=== PATIENT | male | born 1955 | race Caucasian/White ===

== ENCOUNTER 2021-03-07 13:25 | Emergency (ER) | payer OTHER ==
[2021-03-07 14:26] LABS: Absolute Lymphocytes (CBC) 1.9 K/uL (0.7-4.9); Basophils % 1.1 % (0-1.3); Hematocrit 44.4 % (39.6-49.0); Lymphocytes % 20.2 % (15.3-44.8); MPV 7.1 fL (7.6-11.3); RBC Red Blood Cell Count 5.11 M/uL (4.33-5.43)
[2021-03-07] MEDS ORDERED: ONDANSETRON 4 MG/2 ML VIAL ONE ×2 (14:28→18:24)
[2021-03-07] MEDS ORDERED: PANTOPRAZOLE 40 MG INJ ONE (14:28)
[2021-03-07] MEDS ORDERED: NA CHLORIDE 0.9% 1,000 ML ONE (14:28)
[2021-03-07 14:35] LABS: Protime INR 1.08
[2021-03-07 14:45] LABS: ALT/SGPT 66 U/L (12-78); AST/SGOT 35 U/L (15-37); Albumin 4.5 g/dL (3.4-5.0); Alkaline Phosphatase 55 U/L (45-117); BUN Blood Urea Nitrogen 28 mg/dL (7-18); Bicarbonate 26 mmol/L (21-32); Bilirubin Direct 0.2 mg/dL (0-0.2); Bilirubin Total 0.7 mg/dL (0.2-1.0); Glucose Level 107 mg/dL (74-106); Lipase 129 U/L (73-393); Magnesium 2.3 mg/dL (1.8-2.4); Potassium 3.9 mmol/L (3.5-5.1); Protein, Total 7.7 g/dL (6.4-8.2); Sodium Level 140 mmol/L (136-145); Troponin (Emerg Dept Use Only) < 0.02 ng/mL (0.0-0.045)
--- NOTE | 2021-03-07 15:23 | RAD REPORT ---
EXAM DESCRIPTION: CT - Abdomen Pelvis W Contrast - 03/07/2021 3:15 pm CLINICAL HISTORY: ABD PAIN COMPARISON: No comparisons TECHNIQUE: Biphasic, helical CT imaging of the abdomen and pelvis was performed following 100 ml non -ionic IV contrast. No oral contrast was given. All CT scans are performed using dose optimization technique as appropriate and may include automated exposure control or mA/KV adjustment according to patient size. FINDINGS: No suspicious findings in the lung bases. The liver, spleen, and pancreas show no suspicious findings. Diffuse fatty infiltration of the liver is present. No portal vein abnormality. Gallbladder and biliary tree are also without suspicious find ing. Symmetric renal function is seen with no hydronephrosis or suspicious renal mass. No pyelonephritis o r acute parenchymal process. No bladder abnormalities. No adrenal abnormalities. Prostate gland is prominent and mildly lobulated. Small renal cysts are present. Distended but nondilated fluid-filled stomach is present. No acute finding in the GE junction. No gas tric wall thickening or mass. Gastric outlet obstruction is not suspected. No acute large or small beverly wel finding. Appendix is normal. Moderate stool volume is present throughout the colon. No free air, free fluid or inflammatory stranding. No hernia, mass or bulky lymphadenopathy. No suspicious bony findings. IMPRESSION: Contrast enhanced CT abdomen and pelvis showing no acute or emergent finding. Distended, fluid-filled stomach seen without abnormality the GE junction. No gastric wall abnormality seen. No outlet obstruction. Fatty infiltration of the liver.
--- NOTE | 2021-03-07 15:24 | RAD REPORT ---
EXAM DESCRIPTION: RAD - Chest Single View - 03/07/2021 3:05 pm CLINICAL HISTORY: vomiting, abdominal pain COMPARISON: June 2008 TECHNIQUE: AP portable chest image was obtained 03/07/2021 3:05 pm . FINDINGS: Lungs are clear. Interstitial pattern is prominent but similar to comparison. Heart and va sculature are normal. No measurable pleural effusion and no pneumothorax. No acute bony abnormality s een. No acute aortic findings suspected. IMPRESSION: No acute cardiopulmonary process. No significant change from comparison study.
--- NOTE | 2021-03-07 17:58 | RAD REPORT ---
EXAM DESCRIPTION: US - Abdomen Exam Limited - 03/07/2021 4:19 pm CLINICAL HISTORY: Abdominal pain. COMPARISON: None. FINDINGS: The gallbladder wall is not thickened. A gallstone is not seen. The biliary tree is normal caliber. IMPRESSION: Unremarkable gallbladder ultrasound.
--- NOTE | 2021-03-07 18:06 | ER ---
Nurse's Notes [facility] Name: Lio Freire Age: 65 yrs Sex: Male : 1955 Arrival Date: 03/07/2021 Time: 13:29 Bed 8 Private MD: Diagnosis: Nausea and vomiting;Epigastric pain;Abnormal electrocardiogram [ECG] [EKG]-Mobitz type II Presentation: 03/07 13:50 Chief complaint: Chief complaint: Patient states: Reports 12 episodes of coffee ground ph emesis since last night, denies pain in abdomen or blood in stool. Reports hx of elevated liver enzymes and an enlarged spleen. States, " I took a bunch of Tumms last night because I had really bad reflux and then I started getting sick after that.". 13:52 Coronavirus screen: Client denies travel out of the [place] in the last 14 days. At this ph time, the client does not indicate any symptoms associated with coronavirus-19. Ebola Screen: No symptoms or risks identified at this time. Initial Sepsis Screen: Does the patient meet any 2 criteria? No. Patient's initial sepsis screen is negative. Does the patient have a suspected source of infection? No. Patient's initial sepsis screen is negative. Risk Assessment: Do you want to hurt yourself or someone else? Patient reports no desire to harm self or others. Onset of symptoms was March 07, 2021. 13:52 Method Of Arrival: Ambulatory ph 13:52 Acuity: FRITZ 3 ph Historical: - Allergies: 13:55 Sulfa (Sulfonamide Antibiotics); ph - PMHx: 13:55 Pneumonia; enlarged spleen; GERD; COPD; ph - Immunization history:: Adult Immunizations unknown. - Social history:: Smoking status: Patient denies any tobacco usage or history of. Screenin:00 Abuse screen: Denies threats or abuse. Denies injuries from another. Nutritional ca1 screening: No deficits noted. Tuberculosis screening: No symptoms or risk factors identified. Fall Risk IV access (20 points). Assessment: 14:00 General: Appears in no apparent distress. comfortable, Behavior is calm, cooperative, ca1 appropriate for age. Pain: Denies pain. Neuro: Level of Consciousness is awake, alert, obeys commands, Oriented to person, place, time, situation. Cardiovascular: Heart tones S1 S2 present Capillary refill < 3 seconds Patient's skin is warm and dry. Cardiovascular: Rhythm is sinus rhythm. Respiratory: Airway is patent Respiratory effort is even, unlabored, Respiratory pattern is regular, symmetrical, Breath sounds are clear bilaterally. GI: Abdomen is round non-distended, Bowel sounds present X 4 quads. Abd is soft X 4 quads Abdomen is tender to palpation in left upper quadrant Reports nausea, vomiting, since this morning. : No signs and/or symptoms were reported regarding the genitourinary system. EENT: No signs and/or symptoms were reported regarding the EENT system. Derm: Skin is intact, is healthy with good turgor, Skin is pink, warm \\T\\ dry. Musculoskeletal: Circulation, motion, and sensation intact. Capillary refill < 3 seconds. 15:35 Reassessment: Patient appears in no apparent distress at this time. Patient and/or ca1 family updated on plan of care and expected duration. Pain level reassessed. Patient is alert, oriented x 3, equal unlabored respirations, skin warm/dry/pink. 16:00 Reassessment: Provider VO to hold PO challenge, pending US. ca1 16:16 Reassessment: Patient appears in no apparent distress at this time. Patient and/or ca1 family updated on plan of care and expected duration. Pain level reassessed. Patient is alert, oriented x 3, equal unlabored respirations, skin warm/dry/pink. US at bedside. 17:11 Reassessment: Patient appears in no apparent distress at this time. Patient and/or ca1 family updated on plan of care and expected duration. Pain level reassessed. Patient is alert, oriented x 3, equal unlabored respirations, skin warm/dry/pink. 18:15 Reassessment: Patient appears in no apparent distress at this time. Patient and/or ca1 family updated on plan of care and expected duration. Pain level reassessed. Patient is alert, oriented x 3, equal unlabored respirations, skin warm/dry/pink. Vital Signs: 13:52 BP 162 / 107; Pulse 90; Resp 18; Temp 97.2; Pulse Ox 97% on R/A; Weight 117.93 kg; ph Height 6 ft. 2 in. (187.96 cm); 15:35 BP 157 / 85; Pulse 75; Resp 16 S; Pulse Ox 95% on R/A; ca1 16:16 BP 157 / 86; Pulse 71; Resp 20; Pulse Ox 97% on R/A; ca1 17:11 BP 158 / 91; Pulse 67; Resp 20 S; Pulse Ox 96% on R/A; ca1 18:15 BP 151 / 86; Pulse 72; Resp 16 S; Pulse Ox 95% on R/A; ca1 13:52 Body Mass Index 33.38 (117.93 kg, 187.96 cm) ph ED Course: 13:29 Patient arrived in ED. ds1 13:42 Emre Franco PA is PHCP. cp 13:42 Jac Alcocer MD is Attending Physician. cp 13:54 Triage completed. ph 13:55 Arm band placed on Patient placed in an exam room, on a stretcher. ph 14:00 Patient has correct armband on for positive identification. Bed in low position. Call ca1 light in reach. Side rails up X2. athletic monitor on. Pulse ox on. NIBP on. Warm blanket given. 14:02 Nicolette Nielsen, RN is Primary Nurse. ca1 14:18 Initial lab(s) drawn, by ia, sent to lab. Inserted saline lock: 22 gauge in right ca1 antecubital area, using aseptic technique. Blood collected. 15:05 XRAY Chest (1 view) In Process Unspecified. EDMS 15:15 CT Abd/Pelvis - IV Contrast Only In Process Unspecified. EDMS 16:18 US Abdomen Limited In Process Unspecified. EDMS 18:02 Tray Parikh MD is Referral Physician. cp 18:32 No provider procedures requiring assistance completed. IV discontinued, intact, ca1 bleeding controlled, No redness/swelling at site. Pressure dressing applied. Administered Medications: 14:19 Drug: ProTONIX (pantoprazole) 40 mg Route: IVP; Site: right antecubital; ca1 15:30 Follow up: Response: No adverse reaction ca1 14:21 Drug: NS 0.9% 500 ml Route: IV; Rate: bolus; Site: right antecubital; ca1 15:30 Follow up: Response: No adverse reaction; IV Status: Completed infusion; IV Intake: ca1 500ml 14:22 Drug: Zofran (Ondansetron) 4 mg Route: IVP; Site: right antecubital; ca1 15:30 Follow up: Response: No adverse reaction; Nausea is decreased ca1 15:00 Drug: NS 0.9% 500 ml Route: IV; Rate: 125 ml/hr; Site: right antecubital; ca1 18:07 Follow up: Response: No adverse reaction; IV Status: Completed infusion; IV Intake: ca1 500ml 18:00 Drug: Zofran (Ondansetron) 4 mg Route: IVP; Site: right antecubital; ca1 18:31 Follow up: Response: No adverse reaction; Nausea is decreased ca1 Intake: 15:30 IV: 500ml; Total: 500ml. ca1 18:07 IV: 500ml; Total: 1000ml. ca1 Outcome: 18:06 Discharge ordered by MD. cp 18:32 Discharged to home ambulatory. ca1 18:32 Condition: stable 18:32 Discharge instructions given to patient, Instructed on discharge instructions, follow up and referral plans. medication usage, Demonstrated understanding of instructions, follow-up care, medications, Prescriptions given X 2. 18:32 Patient left the ED. ca1 Signatures: Dispatcher [employer] [facility] Albert, Carolyn ds1 Charleen Foy RN RN ph Emre Franco PA PA cp Acob, Cheryl RN RN ca1 Corrections: (The following items were deleted from the chart) 13:54 13:50 Chief complaint: ph ph
--- NOTE | 2021-03-07 18:06 | EDPHYS ---
Physician Documentation [facility] Name: Lio Freire Age: 65 yrs Sex: Male : 1955 Arrival Date: 03/07/2021 Time: 13:29 Bed 8 Private MD: ED Physician Jac Alcocer HPI: 03/07 14:00 This 65 yrs old Male presents to ER via Ambulatory with complaints of cp Vomiting. 14:00 The patient presents to the emergency department with nausea, with "dry heaves", cp vomiting, that is continuous, described as dark brown, abdominal pain, of the epigastric area. Onset: The symptoms/episode began/occurred last night. Possible causes: history of acid reflux. Associated signs and symptoms: Pertinent positives: anorexia, belching, Pertinent negatives: constipation, diarrhea, fever. 14:00 Severity of symptoms: in the emergency department the symptoms are unchanged despite cp home interventions. Historical: - Allergies: 13:55 Sulfa (Sulfonamide Antibiotics); ph - PMHx: 13:55 Pneumonia; enlarged spleen; GERD; COPD; ph - Immunization history:: Adult Immunizations unknown. - Social history:: Smoking status: Patient denies any tobacco usage or history of. ROS: 14:05 Constitutional: Positive for poor PO intake, Negative for body aches, chills, fever. cp 14:05 Eyes: Negative for injury, pain, redness, and discharge. cp 14:05 Cardiovascular: Negative for chest pain, edema, palpitations. 14:05 Respiratory: Negative for cough, shortness of breath, wheezing. 14:05 Abdomen/GI: Positive for nausea and vomiting, dark colored emesis, Negative for diarrhea, constipation, black/tarry stool, rectal bleeding. 14:05 Back: Negative for pain at rest, pain with movement, radiated pain. 14:05 : Negative for urinary symptoms. 14:05 Neuro: Negative for altered mental status, dizziness, headache, syncope, weakness. 14:05 All other systems are negative. Exam: 14:10 Constitutional: The patient appears in no acute distress, alert, awake, cp non-diaphoretic, non-toxic, well developed, well nourished, uncomfortable. 14:10 Head/Face: Normocephalic, atraumatic. cp 14:10 Eyes: Periorbital structures: appear normal, Conjunctiva: normal, no exudate, no injection, Sclera: no appreciated abnormality, Lids and lashes: appear normal, bilaterally. 14:10 ENT: External ear(s): are unremarkable, Nose: is normal, Mouth: Lips: moist, Oral mucosa: moist, Posterior pharynx: Airway: no evidence of obstruction, patent. 14:10 Chest/axilla: Inspection: normal, Palpation: is normal, no crepitus, no tenderness. 14:10 Cardiovascular: Rate: normal, Rhythm: regular, Edema: is not appreciated, JVD: is not appreciated. 14:10 Respiratory: the patient does not display signs of respiratory distress, Respirations: normal, no use of accessory muscles, no retractions, labored breathing, is not present, Breath sounds: are clear throughout, no decreased breath sounds, no stridor, no wheezing. 14:10 Abdomen/GI: Inspection: abdomen appears normal, Bowel sounds: active, all quadrants, Palpation: soft, in all quadrants, mild abdominal tenderness, in the epigastric area and right upper quadrant, rebound tenderness, is not appreciated, voluntary guarding, is elicited in the epigastric area and right upper quadrant. 14:10 Back: CVA tenderness, is absent. 14:10 Neuro: Orientation: to person, place \\T\\ time. Mentation: is normal. 14:37 ECG was reviewed by the Attending Physician. cp Vital Signs: 13:52 BP 162 / 107; Pulse 90; Resp 18; Temp 97.2; Pulse Ox 97% on R/A; Weight 117.93 kg; ph Height 6 ft. 2 in. (187.96 cm); 15:35 BP 157 / 85; Pulse 75; Resp 16 S; Pulse Ox 95% on R/A; ca1 16:16 BP 157 / 86; Pulse 71; Resp 20; Pulse Ox 97% on R/A; ca1 17:11 BP 158 / 91; Pulse 67; Resp 20 S; Pulse Ox 96% on R/A; ca1 18:15 BP 151 / 86; Pulse 72; Resp 16 S; Pulse Ox 95% on R/A; ca1 13:52 Body Mass Index 33.38 (117.93 kg, 187.96 cm) ph MDM: 13:55 Patient medically screened. cp 14:00 Differential diagnosis: gastritis, cholecystitis, pancreatitis, viral gastroenteritis, cp gastroenteritis, PUD, acute WI. 17:10 Physician consultation: Tray Parikh MD was contacted at 17:00, regarding EKG, agrees cp that rhythm is Mobitz type II and stable. Recommends outpatient clinic f/u. 18:05 Data reviewed: vital signs, nurses notes, lab test result(s), EKG, radiologic studies, cp CT scan, ultrasound, I have discussed the patient's presentation/case with the attending Emergency Department Physician; and as a result, I will discharge patient. 18:05 Test interpretation: by ED physician or midlevel provider: ECG, plain radiologic cp studies. Response to treatment: the patient's symptoms have markedly improved after treatment, VSS. Nausea markedly improved and vomiting resolved, and as a result, I will discharge patient. 03/07 13:57 Order name: Basic Metabolic Panel; Complete Time: 14:52 cp 03/07 14:52 Interpretation: Normal except: GLUC 107; BUN 28; GFR 67. cp 03/07 13:57 Order name: CBC with Diff; Complete Time: 14:31 cp 03/07 14:31 Interpretation: Normal except: MPV 7.1; EOSINOPHIL % 5.2. cp 03/07 13:57 Order name: LFT's; Complete Time: 14:52 cp 03/07 13:57 Order name: Magnesium; Complete Time: 14:52 cp 03/07 13:57 Order name: PT-INR; Complete Time: 14:52 cp 03/07 13:57 Order name: Troponin (emerg Dept Use Only); Complete Time: 14:52 cp 03/07 14:52 Interpretation: Within normal limits: TROPED < 0.02. cp 03/07 13:57 Order name: XRAY Chest (1 view); Complete Time: 15:34 cp 03/07 15:34 Interpretation: Report reviewed. cp 03/07 13:57 Order name: Lipase; Complete Time: 14:52 cp / 15:00 Order name: CT Abd/Pelvis - IV Contrast Only; Complete Time: 15:34 cp 03/07 15:35 Interpretation: Report reviewed. cp 03/07 15:55 Order name: US Abdomen Limited; Complete Time: 18:01 cp 03/07 18:01 Interpretation: Report reviewed. cp 03/07 13:57 Order name: EKG; Complete Time: 13:58 cp 03/07 13:57 Order name: Cardiac monitoring; Complete Time: 14:25 cp 03/07 13:57 Order name: EKG - Nurse/Tech; Complete Time: 14:32 cp 03/07 13:57 Order name: IV Saline Lock; Complete Time: 14:25 cp 03/07 13:57 Order name: Labs collected and sent; Complete Time: 14:25 cp 03/07 13:57 Order name: O2 Per Protocol; Complete Time: 14:25 cp 03/07 13:57 Order name: O2 Sat Monitoring; Complete Time: 14:25 cp 03/07 17:12 Order name: PO challenge; Complete Time: 17:56 cp EC:37 Rate is 80 beats/min. Rhythm is regular. DE interval is normal. QRS interval is normal. cp QT interval is prolonged at 430 msec. Interpreted by me. Reviewed by me. Administered Medications: 14:19 Drug: ProTONIX (pantoprazole) 40 mg Route: IVP; Site: right antecubital; ca1 15:30 Follow up: Response: No adverse reaction ca1 14:21 Drug: NS 0.9% 500 ml Route: IV; Rate: bolus; Site: right antecubital; ca1 15:30 Follow up: Response: No adverse reaction; IV Status: Completed infusion; IV Intake: ca1 500ml 14:22 Drug: Zofran (Ondansetron) 4 mg Route: IVP; Site: right antecubital; ca1 15:30 Follow up: Response: No adverse reaction; Nausea is decreased ca1 15:00 Drug: NS 0.9% 500 ml Route: IV; Rate: 125 ml/hr; Site: right antecubital; ca1 18:07 Follow up: Response: No adverse reaction; IV Status: Completed infusion; IV Intake: ca1 500ml 18:00 Drug: Zofran (Ondansetron) 4 mg Route: IVP; Site: right antecubital; ca1 18:31 Follow up: Response: No adverse reaction; Nausea is decreased ca1 Disposition: 03/07/21 18:06 Discharged to Home. Impression: Nausea and vomiting, Epigastric pain, Abnormal electrocardiogram [ECG] [EKG] - Mobitz type II. - Condition is Stable. - Discharge Instructions: Gastroesophageal Reflux Disease, Adult, Nausea and Vomiting, Adult. - Prescriptions for Protonix 40 mg Oral Tablet, Delayed Release (E.C.) - take 1 tablet by ORAL route every 12 hours; 30 tablet. Zofran 4 mg Oral Tablet - take 1 tablet by ORAL route every 12 hours As needed; 20 tablet. - Medication Reconciliation Form, Thank You Letter, Antibiotic Education, Prescription Opioid Use form. - Follow up: Tray Parikh MD; When: 2 - 3 days; Reason: abnormal EKG. Follow up: Private Physician; When: 2 - 3 days; Reason: nausea/vomiting. - Problem is new. - Symptoms have improved. Signatures: Dispatcher [employer] EDMS Charleen Foy RN RN ph Emre Franco PA PA cp Nicolette Nielsen RN RN ca1 Corrections: (The following items were deleted from the chart) 15:40 14:37 Rate is 80 beats/min. DE interval is normal. QRS interval is normal. QT interval cp is prolonged at 430 msec. Interpreted by me. Reviewed by me. cp 17:09 15:35 Fluid Challenge ordered. cp cp 18:32 18:06 03/07/2021 18:06 Discharged to Home. Impression: Nausea and vomiting; Epigastric ca1 pain; Abnormal electrocardiogram [ECG] [EKG] - Mobitz type II. Condition is Stable. Prescriptions for Protonix 40 mg Oral Tablet, Delayed Release (E.C.) - take 1 tablet by ORAL route every 12 hours; 30 tablet, Zofran 4 mg Oral Tablet - take 1 tablet by ORAL route every 12 hours As needed; 20 tablet. and Forms are Medication Reconciliation Form, Thank You Letter, Antibiotic Education, Prescription Opioid Use. Follow up: Tray Parikh; When: 2 - 3 days; Reason: abnormal EKG. Follow up: Private Physician; When: 2 - 3 days; Reason: nausea/vomiting. Problem is new. Symptoms have improved. cp
[2021-03-07 18:55] VITALS: TEMP 97.2
[2021-03-07 19:01] VITALS: BP 151/86; O2SAT 95
== END 2021-03-07 18:32 | disposition home or self-care (01) ==
LOC: ER 13:25
DX: R10.13 Epigastric pain (principal); I44.1 Atrioventricular block, second degree; K21.9 Gastro-esophageal reflux disease without esophagitis; J44.9 Chronic obstructive pulmonary disease, unspecified; Z88.2 Allergy status to sulfonamides
CPT/HCPCS: 85025; 80048; 36415; 83735; 85610; 80076; 84484; 83690; 74177; 71045; 76705; Q9967; C9113; J7030; J2405 ×2; 93005; 96361; 96374; 96375; 99284